=== PATIENT | male | born 1995 | race Caucasian/White ===

== ENCOUNTER 2018-01-17 15:44 | Emergency (ER) | payer SELFPAY ==
[2018-01-17 17:41] LABS: Basophils % (Auto) 0.2 % (0.0-1.8); Eosinophils # (Auto) 0.1 K/mm3 (0.0-0.4); Eosinophils % (Auto) 0.8 % (0.0-4.3); Hematocrit 43.6 % (35.5-45.6); Hemoglobin 14.7 gm/dl (11.8-15.2); Lymphocytes # (Auto) 1.4 K/mm3 (1.2-5.4); Lymphocytes % (Auto) 10.5 % (13.4-35.0); Mean Corpuscular HGB Conc 34 % (32-34); Mean Corpuscular Hemoglobin 30 pg (28-32); Mean Corpuscular Volume 88 fl (84-94); Monocytes # (Auto) 1.2 K/mm3 (0.0-0.8); Monocytes % (Auto) 8.6 % (0.0-7.3); Platelet Count 225 K/mm3 (140-440); Red Blood Count 4.93 M/mm3 (3.65-5.03); Red Cell Distribution Width 12.9 % (13.2-15.2)
[2018-01-17 17:50] LABS: Alanine Aminotransferase 24 units/L (7-56); Albumin 4.5 g/dL (3.9-5); BUN/Creatinine Ratio 14; Blood Urea Nitrogen 10 mg/dL (9-20); Calcium 9.6 mg/dL (8.4-10.2); Hemolysis Index 4
[2018-01-17] MEDS ORDERED: NACL 0.9% 1000 ML 1,000 ML IV ONE (19:12)
[2018-01-17] MEDS ORDERED: TORADOL IV ONE (19:12)
[2018-01-17] MEDS ORDERED: CLEOCIN 600 MG/50 mL 600 MG/50 ML BAG IV ONE (19:13)
--- NOTE | 2018-01-17 19:16 | Emergency Department Report ---
<CARLIE VARGAS - Last Filed: 01/17/18 20:30> - General Chief complaint: Animal Bite Stated complaint: LEFT ARM INFECTION Time Seen by Provider: 01/17/18 18:43 Source: patient Mode of arrival: Ambulatory Limitations: Language Barrier - History of Present Illness Initial comments: 22-year-old male past medical history none presents with complaint of 5 days of worsening redness and swelling at left forearm and elbow. Patient is awake alert and oriented 3 fully lucid not in acute distress. Patient does complain of subjective fever and chills and states that he has noticed rapid reddening of skin on left forearm. Is able to flex and extend elbow without significant difficulty but it is uncomfortable for him. Patient is Swedish-speaking which I speak fluently. Patient denies any direct trauma to area. Patient's may have started as an insect bite. Visible abscess at triceps region. MD complaint: abscess/boil Onset/Timin -: days(s) Location: LUE Severity: moderate Severity scale (0 -10): 6 Consistency: constant Improves with: none - Related Data Previous Rx's Medication Instructions Recorded Last Taken Type Acetaminophen/Codeine [Tylenol 1 tab PO Q6H PRN #12 tab 01/17/18 Unknown Rx /Codeine # 3 tab] Clindamycin [Clindamycin CAP] 300 mg PO Q6H #28 capsule 01/17/18 Unknown Rx Ibuprofen [Motrin] 800 mg PO Q8HR PRN #30 tablet 01/17/18 Unknown Rx Allergies Allergy/AdvReac Type Severity Reaction Status Date / Time No Known Allergies Allergy Unverified 01/17/18 16:25 Abscess Boil HPI - HPI Chief Complaint: Animal Bite Stated Complaint: LEFT ARM INFECTION Time Seen by Provider: 01/17/18 18:43 Home Medications: Previous Rx's Medication Instructions Recorded Last Taken Type Acetaminophen/Codeine [Tylenol 1 tab PO Q6H PRN #12 tab 01/17/18 Unknown Rx /Codeine # 3 tab] Clindamycin [Clindamycin CAP] 300 mg PO Q6H #28 capsule 01/17/18 Unknown Rx Ibuprofen [Motrin] 800 mg PO Q8HR PRN #30 tablet 01/17/18 Unknown Rx Allergies/Adverse Reactions: Allergies Allergy/AdvReac Type Severity Reaction Status Date / Time No Known Allergies Allergy Unverified 01/17/18 16:25 ED Review of Systems ROS: Stated complaint: LEFT ARM INFECTION Other details as noted in HPI Constitutional: denies: chills, fever Eyes: denies: eye pain, eye discharge, vision change ENT: denies: ear pain, throat pain Respiratory: denies: cough, shortness of breath, wheezing Cardiovascular: denies: chest pain, palpitations Endocrine: no symptoms reported Gastrointestinal: denies: abdominal pain, nausea, diarrhea Genitourinary: denies: urgency, dysuria Musculoskeletal: denies: back pain, joint swelling, arthralgia Skin: denies: rash, lesions Neurological: denies: headache, weakness, paresthesias Psychiatric: denies: anxiety, depression Hematological/Lymphatic: denies: easy bleeding, easy bruising ED Past Medical Hx - Social History Smoking Status: Current Every Day Smoker Substance Use Type: Alcohol - Medications Home Medications: Home Medications Medication Instructions Recorded Confirmed Last Taken Type Acetaminophen/Codeine [Tylenol 1 tab PO Q6H PRN #12 tab 01/17/18 Unknown Rx /Codeine # 3 tab] Clindamycin [Clindamycin CAP] 300 mg PO Q6H #28 capsule 01/17/18 Unknown Rx Ibuprofen [Motrin] 800 mg PO Q8HR PRN #30 tablet 01/17/18 Unknown Rx ED Physical Exam - General Limitations: Language Barrier General appearance: alert, in no apparent distress - Head Head exam: Present: atraumatic, normocephalic - Eye Eye exam: Present: normal appearance, PERRL, EOMI - ENT ENT exam: Present: mucous membranes moist - Neck Neck exam: Present: normal inspection - Respiratory Respiratory exam: Present: normal lung sounds bilaterally. Absent: respiratory distress - Cardiovascular Cardiovascular Exam: Present: regular rate, normal rhythm. Absent: systolic murmur, diastolic murmur, rubs, gallop - GI/Abdominal GI/Abdominal exam: Present: soft, normal bowel sounds - Rectal Rectal exam: Present: deferred - Extremities Exam Extremities exam: Present: normal inspection - Expanded Upper Extremity Exam Left Elbow exam: Present: full ROM (elbow flexion and extension clinically intact), tenderness, erythema Forearm Wrist exam: Present: full ROM (pronation and supination clinically intact), tenderness, swelling, erythema (visible erythema overlying the left forearm laterally and some above the left elbow.) Hand Wrist exam: Present: full ROM Neuro motor exam: Present: wrist extension intact, thumb opposition intact, thumb IP flexion intact, thumb adduction intact, fingers 2-5 abduction intact Vascular: Present: normal capillary refill (distal capillary refill less than 1 second), radial pulse, brachial pulse, ulnar pulse - Back Exam Back exam: Present: normal inspection - Neurological Exam Neurological exam: Present: alert, oriented X3, CN II-XII intact, normal gait - Psychiatric Psychiatric exam: Present: normal affect, normal mood - Skin Skin exam: Present: warm, dry, intact, normal color. Absent: rash - Expanded Skin Exam Expanded Type of lesion: Present: abscess, bite/sting Distribution of rash: LUE Description of rash: Present: size, tenderness, erythematous, swelling 1 - Cellulitis here with approximately 3-4 cm area of fluctuance forearm below elbow. I marked borders of erythema around abscess. ED Course Vital Signs 01/17/18 01/17/18 01/17/18 16:17 20:12 21:22 Temperature 98.0 F 98.6 F Pulse Rate 107 H 108 H Respiratory 16 16 16 Rate Blood Pressure 137/93 Blood Pressure 126/68 [Right] O2 Sat by Pulse 99 99 Oximetry - I & D Left Lateral Arm Type of Procedure: Simple Site: left forearm Blade Size: 11 I & D Procedure: betadine prep, gauze wick placed Progress: Area of abscess on left forearm below left elbow infiltrated with lidocaine with epinephrine. Good local anesthesia achieved. Clean with iodoform for single stab incision made approximately 1 cm in length. Good amount of purulent drainage from wound site. Minimal bleeding. I placed approximately 8 cm of quarter inch iodoform gauze in wound. Covered with gauze afterward. Wound culture from site since. Patient felt significant relief of pain after incision and drainage of abscess. ED Medical Decision Making - Lab Data Result diagrams: 01/17/18 16:48 01/17/18 16:48 - Medical Decision Making A/P: Left arm cellulitis, left forearm abscess 1-incision and drainage performed. Moderate amount of purulent drainage approximately 5 mL. Significant relief of pain achieved after incision and drainage. Wound culture sent 2-empiric course of clindamycin 7 days. 300 mg 4 times a day 3-Motrin when necessary, Tylenol No. 3 when necessary 4-I discussed case with Dr. Melgar who also examined the patient. As patient only has mild leukocytosis and is able to tolerate by mouth fluid and food and antibiotics we will give him a choice of either being admitted or being discharged with antibiotics. pt elected to try oral ABX and to be re-assesed in 48 hours instead of admission at this time. I gave patient very strict precautions to return to the ED if he feels worsening pain fever or chills or if there is rapid's pension of erythema beyond the marked borders. I marked the borders with skin pen. It is not fully circumferential around left forearm. It is lateral aspect of left forearm and elbow. Patient's left elbow range of motion is clinically intact and there is no clinical indication at this time of septic joint. I discussed this all with Dr. Melgar. 5-I educated patient and his male and female cousin who are at bedside on the cellulitis and advised him to keep close tabs on the patient and have him follow -up in 48 hours for wound check. I expressed this all to patient clearly in Swedish and he stated that he understood my instructions clearly. 6- patient signed out to [employer] Meghan Dalton for discharge after reassessment of vital signs after IV fluid. Critical care attestation.: If time is entered above; I have spent that time in minutes in the direct care of this critically ill patient, excluding procedure time. ED Disposition Clinical Impression: Abscess of left upper arm and forearm Disposition: TO HOME OR SELFCARE Is pt being admited?: No Does the pt Need Aspirin: No Condition: Stable Instructions: Cellulitis (ED), Abscess Incision and Drainage (ED), Abscess (ED) Additional Instructions: Please return to the emergency room in 2 days for follow-up wound check. If redness and swelling, increased pain, difficulty moving left upper extremity , fever and/or chills, increased heart rate, nausea and vomiting please return to emergency room ANDREW Take antibiotic as prescribed. Take Motrin for pain and/or fever but take this medication with food as it can cause irritation to stop clinoid taken an empty stomach. Keep affected area clean and dry Prescriptions: Acetaminophen/Codeine [Tylenol /Codeine # 3 tab] 1 tab PO Q6H PRN #12 tab PRN Reason: Pain , Severe (7-10) Clindamycin [Clindamycin CAP] 300 mg PO Q6H #28 capsule Ibuprofen [Motrin] 800 mg PO Q8HR PRN #30 tablet PRN Reason: Pain , Severe (7-10) Referrals: [facility] [Outside] - 01/20/18 return to, emergency room in 2 days [Other] - 01/19/18 Forms: Accompanied Note, Work/School Release Form(ED) Print Language: SAMI <MAGALY VICTORIA - Last Filed: 01/17/18 22:26> ED Course - Reevaluation(s) Reevaluation #1: 01/17/18 21:55 Patient completed IV fluid, vital signs are stable afebrile except his heart rate is about 110, he is currently being given by mouth fluid and will recheck heart rate. He stably studies feeling a lot better. No adverse reaction from antibiotic. Reevaluation #2: 01/17/18 22:23 Patient ready to be discharged. He stated was another bedside. He is tolerating oral liquids well. Heart rate is 92 bpm and pulse ox is 99% on room air. Pain is controlled. ED Medical Decision Making - Lab Data Result diagrams: 01/17/18 16:48 01/17/18 16:48
[2018-01-17] MEDS ORDERED: TYLENOL PO ONE (19:17)
[2018-01-17] MEDS ORDERED: NORCO 5/325 PO ONE (19:17)
[2018-01-17] MEDS ORDERED: XYLOCAINE 2%/EPI 1:100,000 INFILTRATI ONE (19:19)
[2018-01-17 21:23] VITALS: BP 126/68
== END 2018-01-17 22:41 | disposition home or self-care (01) ==
LOC: ED 15:44
DX: L02.512 Cutaneous abscess of left hand (principal); F17.200 Nicotine dependence, unspecified, uncomplicated; Z88.1 Allergy status to other antibiotic agents
CPT/HCPCS: 10060; 36415; 80053; 85025; 87116; 96365; 96375; 99283; J1885; J7030; 87076; 87186

== ENCOUNTER 2018-01-18 18:23 | Inpatient (IN) | payer OTHER ==
--- NOTE | 2018-01-18 19:49 | Emergency Department Report ---
- General Chief complaint: Skin Rash Stated complaint: LEFT ARM PAIN Time Seen by Provider: 01/18/18 19:44 Source: patient Mode of arrival: Ambulatory Limitations: No Limitations - History of Present Illness Initial comments: 22-year-old male past medical history none presents with complaint of left- sided form aching and expansion of erythema beyond cellulitic borders that were marked last night by me when I encountered him in the ER. Patient initially presented 24 hours ago with abscess and cellulitis of left forearm region below elbow. Patient states that while pain has improved the erythema has expanded to include his left hand. Patient states that he really drainage has worsened from left forearm abscess site. Patient is awake alert and oriented 3 not in acute distress. Accompanied by family member at bedside. MD complaint: abscess/boil, discoloration Onset/Timin Location: LUE Severity: moderate Severity scale (0 -10): 4 Quality: aching Consistency: intermittent Improves with: none Worsens with: none Context: none Associated symptoms: chills Treatments Prior to Arrival: bandages, attempted to drain pus at, antibiotic - Related Data Previous Rx's Medication Instructions Recorded Last Taken Type Acetaminophen/Codeine [Tylenol 1 tab PO Q6H PRN #12 tab 01/17/18 Unknown Rx /Codeine # 3 tab] Clindamycin [Clindamycin CAP] 300 mg PO Q6H #28 capsule 01/17/18 Unknown Rx Ibuprofen [Motrin] 800 mg PO Q8HR PRN #30 tablet 01/17/18 Unknown Rx Allergies Allergy/AdvReac Type Severity Reaction Status Date / Time vancomycin Allergy Rash Verified 01/18/18 23:49 Abscess Boil HPI - HPI Chief Complaint: Skin Rash Stated Complaint: LEFT ARM PAIN Time Seen by Provider: 01/18/18 19:44 Home Medications: Previous Rx's Medication Instructions Recorded Last Taken Type Acetaminophen/Codeine [Tylenol 1 tab PO Q6H PRN #12 tab 01/17/18 Unknown Rx /Codeine # 3 tab] Clindamycin [Clindamycin CAP] 300 mg PO Q6H #28 capsule 01/17/18 Unknown Rx Ibuprofen [Motrin] 800 mg PO Q8HR PRN #30 tablet 01/17/18 Unknown Rx Allergies/Adverse Reactions: Allergies Allergy/AdvReac Type Severity Reaction Status Date / Time vancomycin Allergy Rash Verified 01/18/18 23:49 ED Review of Systems ROS: Stated complaint: LEFT ARM PAIN Other details as noted in HPI Constitutional: denies: chills, fever Eyes: denies: eye pain, eye discharge, vision change ENT: denies: ear pain, throat pain Respiratory: denies: cough, shortness of breath, wheezing Cardiovascular: denies: chest pain, palpitations Endocrine: no symptoms reported Gastrointestinal: denies: diarrhea Genitourinary: denies: urgency, dysuria Musculoskeletal: denies: back pain, joint swelling, arthralgia Skin: as per HPI (severe erythema left forearm), lesions, change in color. denies: rash Neurological: denies: headache, weakness, paresthesias Psychiatric: denies: anxiety, depression Hematological/Lymphatic: denies: easy bleeding, easy bruising ED Past Medical Hx - Past Medical History Previous Medical History?: No - Social History Smoking Status: Current Every Day Smoker Substance Use Type: Alcohol - Medications Home Medications: Home Medications Medication Instructions Recorded Confirmed Last Taken Type Acetaminophen/Codeine [Tylenol 1 tab PO Q6H PRN #12 tab 01/17/18 01/18/18 Unknown Rx /Codeine # 3 tab] Clindamycin [Clindamycin CAP] 300 mg PO Q6H #28 capsule 01/17/18 01/18/18 Unknown Rx Ibuprofen [Motrin] 800 mg PO Q8HR PRN #30 tablet 01/17/18 01/18/18 Unknown Rx ED Physical Exam - General Limitations: No Limitations General appearance: alert, in no apparent distress - Head Head exam: Present: atraumatic, normocephalic - Eye Eye exam: Present: normal appearance, PERRL, EOMI - ENT ENT exam: Present: mucous membranes moist - Neck Neck exam: Present: normal inspection - Respiratory Respiratory exam: Present: normal lung sounds bilaterally. Absent: respiratory distress - Cardiovascular Cardiovascular Exam: Present: regular rate, normal rhythm. Absent: systolic murmur, diastolic murmur, rubs, gallop - GI/Abdominal GI/Abdominal exam: Present: soft, normal bowel sounds - Rectal Rectal exam: Present: deferred - Extremities Exam Extremities exam: Present: normal inspection - Expanded Upper Extremity Exam Left Elbow exam: Present: tenderness, swelling, erythema Forearm Wrist exam: Present: tenderness, swelling, erythema Neuro motor exam: Present: wrist extension intact, thumb opposition intact, thumb IP flexion intact, thumb adduction intact, fingers 2-5 abduction intact Neurosensory exam: Present: radial nerve intact, median nerve intact Vascular: Present: normal capillary refill, radial pulse, brachial pulse, ulnar pulse - Back Exam Back exam: Present: normal inspection, full ROM - Neurological Exam Neurological exam: Present: alert, oriented X3, CN II-XII intact, normal gait - Psychiatric Psychiatric exam: Present: normal affect, normal mood - Skin Skin exam: Present: warm, dry, intact, normal color, erythema. Absent: rash - Expanded Skin Exam Expanded Distribution of rash: LUE Description of rash: Present: tenderness, erythematous, fluctuant 1 - Erythema extending beyond marked borders here. New abscess at adjacent to previously incised and drained abscess. ED Course Vital Signs 01/18/18 01/18/18 01/18/18 18:38 21:35 21:58 Temperature 98.6 F Pulse Rate 86 Respiratory 16 18 18 Rate Blood Pressure 128/83 Blood Pressure [Right] O2 Sat by Pulse 99 Oximetry 01/18/18 23:49 Temperature 98.8 F Pulse Rate 86 Respiratory 16 Rate Blood Pressure Blood Pressure 117/78 [Right] O2 Sat by Pulse 99 Oximetry - I & D Left Lateral Arm Type of Procedure: Simple Site: left lateral forearm below elbow Blade Size: 11 I & D Procedure: betadine prep, gauze wick placed Progress: This is the second incision and drainage performed on this patient within a 24- hour period. Area cleaned with iodo dying and saline before re-incision and drainage. Previous packing removed from initial incision site. Area infiltrated with lidocaine without epinephrine. Good local anesthesia achieved an abscess/cellulitis site. I manually compressed area for 15-20 minutes and drained more pus out of area. Approximately 10 mL removed. There is a secondary agitation small developing abscess. I made a small less than 1 cm puncture incision here and drained a tiny amount of pus. I repacked the original wound with approximately 10 cm of quarter inch iodoform gauze and approximately 4 cm of quarter inch iodoform gauze in second incision site. Site appeared decompressed from previous appearance. Procedure tolerated well with minimal bleeding. ED Medical Decision Making - Lab Data Result diagrams: 01/18/18 21:57 01/18/18 21:57 - Medical Decision Making A/P: Left arm cellulitis and abscess 1-previous incision site re- addressed with manual decompression irrigation and repacking. Smaller adjacent abscess also incised and drained with packing placed. 2-case with Dr. Murphy. Patient has failed outpatient antibiotics. Will treat as inpatient and admit for IV antibiotics and further observation 3-as per my discussion with ED attending IV vancomycin IV cefepime and IV metronidazole to cover for necrotizing fasciitis. When patient was administered vancomycin he began developing hives almost immediately. Vancomycin stopped. Patient given dose of Benadryl and Pepcid. No signs of angioedema. 4- is discussed with hospitalist for admission Critical care attestation.: If time is entered above; I have spent that time in minutes in the direct care of this critically ill patient, excluding procedure time. ED Disposition Clinical Impression: Left arm cellulitis, Abscess of left arm Disposition: OP ADMIT IP TO THIS HOSP Is pt being admited?: Yes Does the pt Need Aspirin: No Condition: Stable
[2018-01-18] MEDS ORDERED: NACL 0.9% 1000 ML 1,000 ML IV ONE (21:14)
[2018-01-18] MEDS ORDERED: VANCOMYCIN 1,000 MG in NACL 0.9% 500 ML 500 ML IV ONE (21:15)
[2018-01-18] MEDS ORDERED: MORPHINE IV ONE (21:18)
[2018-01-18] MEDS ORDERED: XYLOCAINE 2% INFILTRATI ONE (21:23)
[2018-01-18] MEDS ORDERED: FLAGYL 500 MG/100 ML 500 MG/100 ML BAG IV ONE (22:00)
[2018-01-18] MEDS ORDERED: VANCOMYCIN/NS 1 GM/250 ML 1 GM/250 ML BAG IV ONE (22:00)
[2018-01-18 22:12] LABS: Basophils % (Auto) 0.2 % (0.0-1.8); Eosinophils # (Auto) 0.1 K/mm3 (0.0-0.4); Eosinophils % (Auto) 1.1 % (0.0-4.3); Hematocrit 42.6 % (35.5-45.6); Lymphocytes # (Auto) 1.8 K/mm3 (1.2-5.4); Lymphocytes % (Auto) 15.8 % (13.4-35.0); Mean Corpuscular HGB Conc 33 % (32-34); Mean Corpuscular Hemoglobin 30 pg (28-32); Mean Corpuscular Volume 91 fl (84-94); Monocytes # (Auto) 1.1 K/mm3 (0.0-0.8); Monocytes % (Auto) 9.7 % (0.0-7.3); Platelet Count 218 K/mm3 (140-440); Red Blood Count 4.67 M/mm3 (3.65-5.03)
[2018-01-18] MEDS ORDERED: MORPHINE IV PRN (22:18)
[2018-01-18] MEDS ORDERED: ZOFRAN IV PRN (22:18)
[2018-01-18] MEDS ORDERED: TYLENOL PO PRN (22:19)
[2018-01-18 22:35] LABS: BUN/Creatinine Ratio 12; Blood Urea Nitrogen 7 mg/dL (9-20); Calcium 8.9 mg/dL (8.4-10.2); Hemolysis Index 50
[2018-01-18] MEDS ORDERED: VANCOMYCIN PHARMACY TO DOSE IV SCH (23:00)
[2018-01-18] MEDS ORDERED: PEPCID IV ONE ×2 (23:30→23:34)
[2018-01-18] MEDS ORDERED: BENADRYL ONE (23:34)
[2018-01-18] MEDS ORDERED: BENADRYL IV ONE (23:39)
[2018-01-19] MEDS ORDERED: MAXIPIME/NS 2 GM/100 ML 2 GM/100 ML BAG IV ONE
[2018-01-19] MEDS: CLEOCIN PO SCH ×5 (02:05→23:26)
--- NOTE | 2018-01-19 03:15 | History and Physical Report ---
CHIEF COMPLAINT: Pain and swelling in the left forearm. HISTORY OF PRESENT ILLNESS: The patient is a 22-year-old male, who developed some pain and swelling in the left forearm with some redness and initially came to the Emergency Room 24 hours prior to this presentation/admission and was seen and diagnosed with abscess in the left forearm. The abscess was drained and the patient was given clindamycin and sent home, but came back with worsening pain with more redness and more drainage. There was no history of fever, but there was a history of chills. No history of nausea and vomiting and the patient was seen this time around with evidence of worsening swelling, redness and pain and presented for admission. PAST MEDICAL HISTORY: Unremarkable. PAST SURGICAL HISTORY: Unremarkable. FAMILY HISTORY: Noncontributory. SOCIAL HISTORY: The patient smokes cigarettes, drinks alcohol and does not use illicit drugs. MEDICATIONS: The patient is on clindamycin 300 mg every 6 hours, Tylenol No.3 one by mouth every 6 hours as needed for pain and ibuprofen 800 mg by mouth every 6 hours as needed for pain. ALLERGIES: VANCOMYCIN. REVIEW OF SYSTEMS: CONSTITUTIONAL: There is no fever. There are chills. No diaphoresis. HEENT: There is no headache or sore throat. CARDIOVASCULAR: There is no chest pain or orthopnea. RESPIRATORY: There is no shortness of breath or cough. GASTROINTESTINAL: There is no nausea, no vomiting, no abdominal pain, diarrhea or constipation. NEUROLOGICAL: There is no numbness, no dizziness, no altered mental status. MUSCULOSKELETAL: Swelling in the left upper arm noted. DERMATOLOGICAL: Shows swelling, redness and drainage in the left forearm. GENITOURINARY: Show no dysuria, hematuria or flank pain. Rest of system review is normal. PHYSICAL EXAMINATION: GENERAL: At the time of exam, the patient was found to be alert, oriented x 3 and in mild distress due to pain in the left forearm. VITAL SIGNS: Show temperature of 98.8 degrees Fahrenheit, pulse of 86, respirations 16, blood pressure 117/78, O2 sat of 99% on room air. HEENT: Shows the pupils to be equal, round, reactive to light and accommodation. Extraocular muscles are intact. NECK: Supple with no JVD or carotid bruit. CARDIOVASCULAR: Showed normal first and second heart sounds with no gallops or murmurs. RESPIRATORY: Shows good air entry on both sides of the lungs with no abnormal breath sounds. GASTROINTESTINAL: Shows the abdomen to be full, soft, nontender with no organomegaly or rigidity. NEUROLOGIC: Shows no focal deficit. MUSCULOSKELETAL: Shows swelling in the left upper arm with tenderness. DERMATOLOGICAL: Shows redness with swelling and drainage in the left forearm where incision and drainage was done. GENITOURINARY: Shows no costovertebral angle tenderness. PERTINENT LABORATORY DATA AND IMAGING STUDIES: The patient has CBC done that shows slight increase in WBC of 11,200 with normal hemoglobin, normal hematocrit and CBC differential shows elevated segmented neutrophils of 73.2%. The patient's chemistry shows low CO2 of 20, low BUN of 7, low creatinine of 0.6. IMAGING STUDIES: No imaging studies were done at this time. DIAGNOSIS: Cellulitis of the left forearm. PLAN: The patient will be admitted to medical/surgical [facility] and will have Wound Care nurse consult in the morning. The patient will be on IV cefepime 1 gram every 8 hours and we will continue IV clindamycin 300 mg, every 6 hours that was started as po outpatient. The patient will be on IV morphine 2 mg every 3 hours as needed for pain and will be on heparin 5000 units subcutaneous every 12 hours for DVT prophylaxis. The patient will be on Tylenol 650 mg every 4 hours as needed for fever and headache and will be on Zofran 4 mg IV every 6 hours for nausea and vomiting. ADDENDUM: The patient's diet will be regular diet. JOB# [id number] OCN/NTS NICHOLAS
[2018-01-19] MEDS ORDERED: VANCOMYCIN/NS 1 GM/250 ML 1 GM/250 ML BAG IV SCH ×2 (06:00→10:00)
[2018-01-19] MEDS: MAXIPIME/NS 1 GM/100 ML 1 GM/100 ML BAG IV SCH ×3 (08:00→23:26)
--- NOTE | 2018-01-19 10:16 | Progress Note ---
Assessment and Plan - Cellulitis left forearm Continue iv cephalexin and clindamycin. - Leukocytosis Secondary to cellulitis. Continue with IV antibiotics Blood culture - Metabolic acidosis IV hydration - DVT prophylaxis with SCDs Subjective Date of service: 01/19/18 Principal diagnosis: cellulitis left forearm Interval history: 6. Has Still has pain and swelling of the left forearm. Denies any fever. No chest shortness of breath. Objective - Exam Narrative Exam: Constitutional: Well-nourished well-developed. In no distress Head: Normocephalic atraumatic Eyes: Pupils are equal round and reactive to light Nose: No enlarged turbinates, no septal deviation. Mouth: Moist mucous membranes. Neck: Supple no thyromegaly. No bruit. No JVD Heart: Regular rate and rhythm, S1-S2 abnormal. No rubs murmurs or gallop Lungs: Clear to auscultation bilaterally no rales or rhonchi Abdomen: Soft, nontender. Bowel sound are present. Extremities: Erythema and swelling of the left forearm. Neuro: Alert oriented Oriented x3. No focal sensory or motor deficit. Skin: Erythema left forearm. No rashes Psychiatry: Euthymic. Calm. - Constitutional Vitals: Vital Signs - 12hr 01/18/18 01/19/18 23:49 04:29 Temperature 98.8 F Pulse Rate 86 Respiratory 16 16 Rate Blood Pressure 117/78 [Right] O2 Sat by Pulse 99 Oximetry - Labs CBC & Chem 7: 01/18/18 21:57 01/18/18 21:57 Labs: Abnormal lab results 01/18/18 01/18/18 Range/Units 21:57 21:57 WBC 11.2 H (4.5-11.0) K/mm3 RDW 13.0 L (13.2-15.2) % [place] % (Auto) 9.7 H (0.0-7.3) % [place] # 1.1 H (0.0-0.8) K/mm3 Seg Neutrophils % 73.2 H (40.0-70.0) % Seg Neutrophils # 8.2 H (1.8-7.7) K/mm3 Carbon Dioxide 20 L D (22-30) mmol/L BUN 7 L (9-20) mg/dL Creatinine 0.6 L (0.8-1.5) mg/dL
[2018-01-19] MEDS: HEPARIN SUB-Q SCH ×2 (10:17→21:02)
[2018-01-19] MEDS: D5NS 1,000 ML IV SCH (20:59)
[2018-01-19] MEDS ORDERED: PEPCID IV ONE ×2 (23:34→23:39)
[2018-01-20] MEDS: D5NS 1,000 ML IV SCH ×3 (04:08→17:43)
[2018-01-20] MEDS: CLEOCIN PO SCH ×4 (05:24→23:21)
[2018-01-20 05:38] LABS: Basophils % (Auto) 0.5 % (0.0-1.8); Eosinophils # (Auto) 0.2 K/mm3 (0.0-0.4); Eosinophils % (Auto) 3.8 % (0.0-4.3); Hematocrit 41.8 % (35.5-45.6); Hemoglobin 14.1 gm/dl (11.8-15.2); Lymphocytes # (Auto) 1.6 K/mm3 (1.2-5.4); Lymphocytes % (Auto) 30.1 % (13.4-35.0); Mean Corpuscular HGB Conc 34 % (32-34); Mean Corpuscular Hemoglobin 30 pg (28-32); Mean Corpuscular Volume 89 fl (84-94); Monocytes # (Auto) 0.5 K/mm3 (0.0-0.8); Monocytes % (Auto) 9.6 % (0.0-7.3); Platelet Count 245 K/mm3 (140-440); Red Blood Count 4.68 M/mm3 (3.65-5.03); Red Cell Distribution Width 13.4 % (13.2-15.2)
[2018-01-20 06:01] LABS: Alanine Aminotransferase 67 units/L (7-56); Albumin 3.6 g/dL (3.9-5); BUN/Creatinine Ratio 10; Blood Urea Nitrogen 7 mg/dL (9-20); Calcium 8.8 mg/dL (8.4-10.2); Hemolysis Index 3
--- NOTE | 2018-01-20 09:12 | Progress Note ---
Assessment and Plan - Cellulitis left forearm Continue iv cephalexin and clindamycin. - Leukocytosis Secondary to cellulitis. Continue with IV antibiotics Blood culture - Metabolic acidosis resolved IV hydration - DVT prophylaxis with SCDs Subjective Date of service: 01/20/18 Principal diagnosis: cellulitis left forearm Interval history: 6. Has Still has pain and swelling of the left forearm. Denies any fever. No chest shortness of breath. Objective - Exam Narrative Exam: Constitutional: Well-nourished well-developed.In no distress Head: Normocephalic atraumatic Eyes: Pupils are equal round and reactive to light Nose: No enlarged turbinates, no septal deviation. Mouth: Moist mucous membranes. Neck: Supple no thyromegaly. No bruit. No JVD Heart: Regular rate and rhythm, S1-S2 abnormal. No rubs murmurs or gallop Lungs: Clear to auscultation bilaterally no rales or rhonchi Abdomen: Soft, nontender. Bowel sound are present. Extremities: Erythema and swelling of the left forearm. Neuro: Alert oriented Oriented x3. No focal sensory or motor deficit. Skin: Erythema left forearm. No rashes Psychiatry: Euthymic. Calm. - Constitutional Vitals: Vital Signs - 12hr 01/20/18 01/20/18 00:13 06:30 Temperature 98.0 F 97.8 F Pulse Rate 78 69 Respiratory 16 16 Rate Blood Pressure 108/70 109/63 O2 Sat by Pulse 98 98 Oximetry - Labs CBC & Chem 7: 01/20/18 04:56 01/20/18 04:56 Labs: Abnormal lab results 01/20/18 01/20/18 Range/Units 04:56 04:56 [place] % (Auto) 9.6 H (0.0-7.3) % BUN 7 L (9-20) mg/dL Creatinine 0.7 L (0.8-1.5) mg/dL AST 56 H (5-40) units/L ALT 67 H (7-56) units/L Albumin 3.6 L (3.9-5) g/dL
[2018-01-20] MEDS: HEPARIN SUB-Q SCH ×2 (09:24→22:02)
[2018-01-20] MEDS: MAXIPIME/NS 1 GM/100 ML 1 GM/100 ML BAG IV SCH ×3 (09:24→23:21)
[2018-01-21] MEDS: D5NS 1,000 ML IV SCH ×2 (01:27→11:51)
[2018-01-21] MEDS: CLEOCIN PO SCH ×2 (05:56→11:51)
[2018-01-21 06:29] LABS: Basophils % (Auto) 0.4 % (0.0-1.8); Eosinophils # (Auto) 0.3 K/mm3 (0.0-0.4); Hematocrit 37.7 % (35.5-45.6); Hemoglobin 12.8 gm/dl (11.8-15.2); Lymphocytes # (Auto) 1.7 K/mm3 (1.2-5.4); Lymphocytes % (Auto) 33.9 % (13.4-35.0); Mean Corpuscular HGB Conc 34 % (32-34); Mean Corpuscular Hemoglobin 30 pg (28-32); Mean Corpuscular Volume 88 fl (84-94); Monocytes # (Auto) 0.5 K/mm3 (0.0-0.8); Monocytes % (Auto) 9.1 % (0.0-7.3); Platelet Count 254 K/mm3 (140-440); Red Blood Count 4.26 M/mm3 (3.65-5.03); Red Cell Distribution Width 13.1 % (13.2-15.2)
[2018-01-21 06:53] LABS: Alanine Aminotransferase 47 units/L (7-56); Albumin 3.3 g/dL (3.9-5); BUN/Creatinine Ratio 10; Blood Urea Nitrogen 6 mg/dL (9-20); Calcium 8.3 mg/dL (8.4-10.2); Hemolysis Index 3
--- NOTE | 2018-01-21 10:29 | Discharge Summary ---
Providers - Providers Date of Admission: 01/18/18 22:15 Date of discharge: 01/21/18 Attending physician: BESSY FRITZ 01/19/18 06:17 Consult to Wound/ET Nurse [CONS] Routine Reason For Exam: wound eval Primary care physician: ADVERTISING DIRECTOR Hospitalization Condition: Stable Hospital course: 22-year-old male past medical history none presents with complaint of left- sided form aching and expansion of erythema beyond cellulitic borders that were marked last night by me when I encountered him in the ER. Patient initially presented 24 hours ago with abscess and cellulitis of left forearm region below elbow. Patient states that while pain has improved the erythema has expanded to include his left hand. Patient states that he really drainage has worsened from left forearm abscess site. Patient is awake alert and oriented 3 not in acute distress. Disposition: DC-01 TO HOME OR SELFCARE Core Measure Documentation - Palliative Care Palliative Care/ Comfort Measures: Not Applicable Exam - Constitutional Vitals: Temp Pulse Resp BP Pulse Ox 97.8 F 54 L 18 129/78 100 01/21/18 06:24 01/21/18 06:24 01/21/18 06:24 01/21/18 06:24 01/21/18 06:24 General appearance: Present: no acute distress, well-nourished - EENT Eyes: Present: PERRL ENT: hearing intact, clear oral mucosa - Neck Neck: Present: supple, normal ROM - Respiratory Respiratory effort: normal Respiratory: bilateral: CTA - Cardiovascular Heart Sounds: Present: S1 & S2. Absent: rub, click - Extremities Extremities: pulses symmetrical, No edema - Abdominal General gastrointestinal: Present: soft, non-tender, non-distended, normal bowel sounds Male genitourinary: Present: deferred - Rectal Rectal Exam: deferred - Integumentary Integumentary: Present: clear, warm, dry - Musculoskeletal Musculoskeletal: strength equal bilaterally - Psychiatric Psychiatric: appropriate mood/affect, cooperative - Neurologic Neurologic: moves all extremities Plan Activity: advance as tolerated Diet: regular Follow up with: PRIMARY CARE,MD [Primary Care Provider] - 3-5 Days Prescriptions: Cephalexin [Keflex] 500 mg PO TID #21 cap Clindamycin [Clindamycin CAP] 300 mg PO Q6H #28 capsule
[2018-01-21] MEDS: MAXIPIME/NS 1 GM/100 ML 1 GM/100 ML BAG IV SCH (11:49)
[2018-01-21 11:53] VITALS: BP 115/72
[2018-01-21] MEDS: HEPARIN SUB-Q SCH (11:56)
== END 2018-01-21 17:39 | disposition home or self-care (01) | DRG 603 ==
LOC: ED 18:23 → 3A 22:15
PROVIDERS: ADMIT Internal Medicine; ATTEND Family Medicine
PROC: 0H9CXZZ Drainage of Left Upper Arm Skin, External Approach (ICD-10-PCS; principal; 2018-01-18)
DX: L03.114 Cellulitis of left upper limb (principal); E87.2 Acidosis; F17.210 Nicotine dependence, cigarettes, uncomplicated; L02.414 Cutaneous abscess of left upper limb; D72.829 Elevated white blood cell count, unspecified; Z88.1 Allergy status to other antibiotic agents; Z72.89 Other problems related to lifestyle
CPT/HCPCS: 36415; 80048; 80053; 82140; 82550; 83735; 84100; 85025; 87040; 96365; 96375; 99406; J0692; J1200; J1644; J2270; J3370; J7030; J7042